=== PATIENT | female | born 1960 | race Caucasian/White ===

== ENCOUNTER 2018-09-22 16:18 | Emergency (ER) | payer MEDICARE, MEDICAID, SELFPAY ==
[2018-09-22] VITALS (40 sets, daily range): BP systolic 131–200; BP diastolic 57–120; PULSE 64–94; RESP 4–21; TEMP 36.9; O2SAT 90–100
--- NOTE | 2018-09-22 16:28 | ED.GENADUL_ITS ---
Discharge Plan Disposition Patient Disposition: HOME Condition: Improving Discharge Details Chief Complaint: Dizzy/Sync Clinical Impression: Vertigo, Fall, Episode of syncope, Cervical strain, Closed head injury with brief loss of consciousness, Left rib fracture Primary Care Provider: Belkys Berg ED Provider: Nehal Martinez Home Meds and New Rx's Prescriptions: New meclizine 12.5 mg tablet 12.5 mg PO TID PRN (Reason: dizziness) Qty: 10 RF: 0 prochlorperazine maleate [Compazine] 10 mg tablet 10 mg PO Q6H PRN (Reason: nausea and vomiting) Qty: 7 RF: 0 methocarbamol 750 mg tablet 750 mg PO QID PRN (Reason: muscle spasm) Qty: 10 RF: 0 Continued ascorbic acid (vitamin C) [Vitamin C] 250 MG tablet 250 mg PO BID RF: 0 alprazolam 1 MG tablet extended release 24 hr 0.5 mg PO BID RF: 0 psyllium husk (with sugar) [Metamucil (with sugar)] 822 GM powder 1 - 2 tsp PO DAILY Qty: 1 RF: 1 levothyroxine 50 MCG tablet 50 mcg PO DAILY Qty: 90 RF: 12 ergocalciferol (vitamin D2) [Vitamin D2] 50,000 UNIT capsule 1 tab-cap PO weekly Qty: 12 RF: 12 hydrochlorothiazide 25 mg tablet 25 mg PO DAILY Qty: 90 RF: 4 cholecalciferol (vitamin D3) [Vitamin D3] 2,000 unit capsule 2,000 unit PO DAILY Qty: 90 RF: 4 Prilosec OTC 20 mg tablet,delayed release (DR/EC) 20 mg PO BID Qty: 180 RF: 3 docusate sodium [Colace] 100 MG capsule 200 mg PO BID RF: 0 quetiapine [Seroquel XR] 50 MG tablet extended release 24 hr 100 mg PO HS RF: 0 Discharge Instructions Instructions: Cervical Strain (ED), Rib Fracture (ED), Vertigo (ED), Syncope (ED), Head Injury (ED) Additional Instructions: Take the muscle relaxers as needed and directed for your neck pain. Alternate Tylenol and Motrin as needed and directed for pain. Take the Compazine as needed and directed for any further nausea or vomiting. Take the meclizine as needed and directed for any dizziness. Call your primary tomorrow morning to schedule a follow-up appointment for reevaluation and for referral for a ZIO Patch for Holter monitor for evaluation of your heart rhythm. Return immediately to the emergency department if you develop any worsening or new concerning symptoms. Discharge Data Discharge Physician: Nehal Martinez Medical Decision Making 58-year-old female with a history of hypertension, hypothyroidism, fibromyalgia, sleep apnea who presents with spinning sensation and nausea for the past 6 days status post head injury with syncopal episode. EKG on arrival notes a rate of 87, sinus with no acute ST elevation or depression. Patient placed in c-collar. She has lower midline C-spine and left paraspinal cervical tenderness. Moving all extremities. No focal deficits. No head trauma. Differential diagnosis includes BPPV, dehydration, viral illness, acute CVA, arrhythmia, electrolyte abnormality, cervical strain, C-spine fracture. Will place an IV, bolus IV fluids, meclizine, Compazine, Benadryl, Valium. Will give Toradol if CT head negative. Will obtain screening labs, urinalysis, CT head, cervical spinal chest x-ray. 1929 --CT head and cervical spine negative. Chest x-ray notes a possible left rib fracture. On reassessment of chest, patient has left chest wall tenderness. Lungs clear. Patient offered left rib x-ray but declines. She states she may have hit her left rib in her fall 1 week ago. Labs reviewed and note normal white blood cell count, potassium 3.3. Anion gap 15. Magnesium 1.6. Troponin negative. Urinalysis notes 3-5 WBCs and urine culture sent. Suspect anion gap due to dehydration. 1999 --patient feels much better and feels good to go home. Will ambulate and reassess. 2029 --patient was able to ambulate a few times in the commode and denies any dizziness. States her neck pain is much improved. She denies any chest pain. No respiratory available at this time. As this is not emergent, will refer patient to her primary care doctor for ZIO Patch or Holter monitor for further evaluation. Will send with methocarbamol, meclizine and Compazine. She is instructed to drink plenty of fluids, supplement potassium in her diet, get plenty of rest, and return with any worsening symptoms. Medical Records Medical records reviewed: Yes I reviewed the patient's medical records. Imaging Data Radiologic Study: Radiologist's impression: CT Head Without Contrast EXAM DATE/TIME: 09/22/2018 5:03 PM CLINICAL HISTORY: 58 years old, female; Headache not specified; Neck pain; Patient HX: PT S/P fall, head injury TECHNIQUE: Imaging protocol: Axial computed tomography images of the head without contrast. Coronal and sagittal reformatted images were created and reviewed. Radiation optimization: All CT scans at this facility use at least one of these dose optimization techniques: automated exposure control; mA and/or kV adjustment per patient size (includes targeted exams where dose is matched to clinical indication); or iterative reconstruction. COMPARISON: No relevant prior studies available. FINDINGS: Brain: No evidence for acute transcortical infarct. No mass effect or midline shift. No extra-axial collection. No acute intracranial hemorrhage. Basal cisterns are patent. Ventricles: Normal. No ventriculomegaly. Bones/joints: Unremarkable. No acute fracture. Sinuses: Visualized sinuses are unremarkable. No fluid levels. Mastoid air cells: Visualized mastoid air cells are well aerated. No mastoid effusion. Soft tissues: Unremarkable. IMPRESSION: No evidence for acute transcortical infarct, acute intracranial hemorrhage, or mass effect. CT Cervical Spine Without Contrast EXAM DATE/TIME: 09/22/2018 5:03 PM CLINICAL HISTORY: 58 years old, female; Headache not specified; Neck pain; Patient HX: PT S/P fall, head injury TECHNIQUE: Imaging protocol: Axial computed tomography images of the cervical spine without contrast. Coronal and sagittal reformatted images were created and reviewed. Radiation optimization: All CT scans at this facility use at least one of these dose optimization techniques: automated exposure control; mA and/or kV adjustment per patient size (includes targeted exams where dose is matched to clinical indication); or iterative reconstruction. COMPARISON: No relevant prior studies available. FINDINGS: Vertebrae: No acute fracture or traumatic subluxation. No spondylolisthesis. The atlantooccipital and atlantoaxial articulations are intact. Facet joint alignments are maintained. Discs/Spinal canal/Neural foramina: Age-related degenerative disc disease. Multilevel degenerative changes of the cervical spine. Other bones/joints: Occipital condyles are intact. Prevertebral Space: No prevertebral soft tissue swelling. Soft tissues: Unremarkable. Lungs: Lung apices are normal. IMPRESSION: No acute fracture or traumatic subluxation. XR Chest, 2 Views EXAM DATE/TIME: 09/22/2018 6:43 PM CLINICAL HISTORY: 58 years old, female; Other: L chest pain, R/O acute disease TECHNIQUE: Imaging protocol: XR of the chest, 2 views. COMPARISON: CR CHEST 2 VIEWS PA,LAT 05/13/2016 7:03 PM FINDINGS: Lungs: Clear lungs. Pleural space: No pneumothorax. No sizable pleural effusion. Heart/Mediastinum: No cardiomegaly. Bones/joints: Questionable fracture of the left 8th lateral rib. IMPRESSION: 1. Questionable fracture of the left 8th lateral rib. Consider dedicated rib series radiographs for further evaluation. Lab Data Lab results reviewed: Yes I reviewed the patient's lab results. 09/22/18 18:32 Urine - Reflex from Ua Urine Culture - Pending Laboratory Tests Range/Units 09/22/18 09/22/18 09/22/18 16:36 16:36 18:32 WBC (4.4-10.8) k/cumm 10.13 RBC (4.00-5.20) m/cumm 4.87 Hgb (12.0-15.5) g/dL 15.2 Hct (36.0-46.0) % 43.4 MCV (80-95) fL 89.1 MCH (27.0-33.0) pg 31.2 MCHC (32.0-36.0) g/dL 35.0 RDW (11.7-14.6) % 13.0 Plt Count (130-400) x1000/uL 303 MPV (8.0-11.0) fL 10.7 Immature Gran % 0.4 Neutrophils % 60.9 Lymphocytes % 30.8 Monocytes % 5.3 Eosinophils % 2.3 Basophils % 0.3 Absolute Neutrophils (1.2-6.7) k/cumm 6.17 Absolute Lymphocytes (1.2-3.4) k/cumm 3.12 Absolute Monocytes (0.11-0.7) k/cumm 0.54 Absolute Eosinophils (0.0-0.7) k/cumm 0.23 Absolute Basophils (0.0-0.2) k/cumm 0.03 Sodium (136-145) mmol/L 143 Potassium (3.5-5.1) mmol/L 3.3 L Chloride (98-107) mmol/L 105 Carbon Dioxide (21.0-32.0) mmol/L 22.1 Anion Gap (3-11) mmol/L 15.9 H BUN (7-18) mg/dL 7 Creatinine (0.55-1.02) mg/dL 0.91 Estimated GFR/1.73 m2 (mL/min/1.73m2) >= 60.00 Glucose (70-100) mg/dL 99 Calcium (8.5-10.1) mg/dL 8.2 L Magnesium (1.8-2.4) mg/dL 1.6 L Total Bilirubin (0.2-1.0) mg/dL 0.5 AST (15-37) U/L 35 ALT (12-78) U/L 65 Alkaline Phosphatase (46-116) U/L 92 Troponin I (0.00-0.06) ng/mL < 0.05 Total Protein (6.4-8.2) g/dL 7.9 Albumin (3.4-5.0) g/dL 3.7 Urine Color (Yellow) Yellow Urine Clarity (Clear) Sl cloudy Urine pH (5-8) 6.5 Ur Specific [place] (1.005-1.025) <= 1.005 Urine Protein (Negative) mg/dL Negative Urine Ketones (Negative) mg/dL Negative Urine Blood (Negative) Trace-intact H Urine Nitrite (Negative) Negative Urine Bilirubin (Negative) Negative Urine Urobilinogen (Up TO 0.2) EU/dL 0.2 Ur Leukocyte Esterase (Negative) Small H Urine RBC (0-2) 0-2 Urine WBC (0-5) HPF 3-5 Ur Epithelial Cells (Negative) HPF Few Urine Crystals (Negative) HPF Negative Urine Bacteria (Negative) HPF Many Urine Casts (Negative) LPF Negative Urine Mucus (Negative) Negative Ur Culture Indicated? Yes Urine Glucose (Negative) mg/dL Negative ECG Data Attestation: I personally reviewed and interpreted this ECG (s) as follows: Interpretation: Rate of 87, sinus, T wave inversion in V2 and V3. No old EKG to compare. No acute ST elevation or depression. QTc 476. QRS 102. HPI General Mode of arrival: ambulatory . Date/Time Provider Initiated Documentation: 09/22/18 16:21 . Limitations to Documentation: no limitations . Information obtained by: patient . HPI Narrative: Patient is a 58-year-old female with a history of hypertension, fibromyalgia, hypothyroidism, obstructive sleep apnea who presents with dizziness, and nausea for the past 6 days. Patient states she stood up quickly one 1 week ago and became dizzy and spinning and states she passed out. She states she woke up sitting on the couch and had posterior headache and left-sided neck pain. She states she thinks she hit her head and also her left knee. She states her left knee pain is since resolved. She states since then she has had spinning sensation that is worse with laying flat and when turning from side to side. She states she also has left-sided neck pain that is worse to palpation and occasionally radiates down to her left shoulder. She states she had chest pain last week for 1 day but this is since resolved. She denies any fever, ear pain, cough, shortness of breath, abdominal pain, vomiting or diarrhea. Related Data Home Medications Medication Instructions Recorded Confirmed ascorbic acid (vitamin C) [Vitamin 250 mg PO BID 05/30/12 07/12/16 C] docusate sodium [Colace] 200 mg PO BID 10/01/12 07/12/16 quetiapine [Seroquel XR] 100 mg PO HS 10/01/12 07/12/16 alprazolam 0.5 mg PO BID 12/08/15 07/12/16 psyllium husk (with sugar) 1 - 2 tsp PO DAILY #1 bottle 04/18/17 [Metamucil (with sugar)] levothyroxine 50 mcg PO DAILY #90 tab-cap 08/24/17 ergocalciferol (vitamin D2) 1 tab-cap PO weekly #12 tab-cap 10/26/17 [Vitamin D2] hydrochlorothiazide 25 mg tablet 25 mg PO DAILY #90 tab 04/30/18 cholecalciferol (vitamin D3) 2,000 2,000 unit PO DAILY #90 tab 05/28/18 unit capsule omeprazole magnesium 20 mg 20 mg PO BID #180 tab-cap 06/04/18 tablet,delayed release meclizine 12.5 mg PO TID PRN #10 tab 09/22/18 methocarbamol 750 mg PO QID PRN #10 tab 09/22/18 prochlorperazine maleate 10 mg PO Q6H PRN #7 tab 09/22/18 [Compazine] Previous Rx's Medication Instructions Recorded psyllium husk (with sugar) 1 - 2 tsp PO DAILY #1 bottle 04/18/17 [Metamucil (with sugar)] levothyroxine 50 mcg PO DAILY #90 tab-cap 08/24/17 ergocalciferol (vitamin D2) 1 tab-cap PO weekly #12 tab-cap 10/26/17 [Vitamin D2] hydrochlorothiazide 25 mg tablet 25 mg PO DAILY #90 tab 04/30/18 cholecalciferol (vitamin D3) 2,000 2,000 unit PO DAILY #90 tab 05/28/18 unit capsule omeprazole magnesium 20 mg 20 mg PO BID #180 tab-cap 06/04/18 tablet,delayed release meclizine 12.5 mg PO TID PRN #10 tab 09/22/18 methocarbamol 750 mg PO QID PRN #10 tab 09/22/18 prochlorperazine maleate 10 mg PO Q6H PRN #7 tab 09/22/18 [Compazine] Allergies Allergy/AdvReac Type Severity Reaction Status Date / Time clindamycin Allergy Severe RASH Unverified 04/18/17 15:31 latex Allergy Intermediate RASH Unverified 04/18/17 15:31 levofloxacin [From Levaquin] Allergy Intermediate Hives Unverified 04/18/17 15: 31 Penicillins Allergy Unknown Skin Rash Unverified 04/18/17 15:31 amoxicillin [Amoxicillin] Allergy RASH Unverified 04/18/17 15:31 eszopiclone [From Lunesta] Allergy Hives Unverified 04/18/17 15:31 venlafaxine AdvReac Intermediate ELEVATED Unverified 04/18/17 15:31 B/P from Effexor acetaminophen AdvReac CAUSES Unverified 04/18/17 15:31 PAIN IN RT SIDE aspirin AdvReac it byrd Unverified 04/18/17 15:31 my stomach codeine [Codeine] AdvReac NAUSEA/VOMI Unverified 04/18/17 15:31 TING doxepin [Doxepin] AdvReac NAUSEA Unverified 04/18/17 15:31 topiramate AdvReac LIVER Unverified 04/18/17 15:31 PAINS & NAUSEA Review of Systems Review of Systems All systems reviewed & are unremarkable except as noted in HPI and below Constitutional Reports as per HPI, Denies chills and Denies fever(s) Eyes Denies blurry vision ENT Reports dizziness, Denies sore throat and Denies throat swelling Cardiovascular Denies chest pain and Denies dyspnea Respiratory Denies cough and Denies dyspnea Gastrointestinal Denies abdominal pain, Denies diarrhea, Reports nausea and Denies vomiting Genitourinary Denies hematuria and Denies dysuria Musculoskeletal Denies back pain and Denies numbness Integumentary/Breasts Denies lesions and Denies rash Neurologic Reports dizziness, Denies focal weakness and Denies numbness Allergic/Immunologic Denies throat swelling PFS Medical History Colon polyps Fibromyalgia Gastritis HTN (hypertension) Hypothyroidism Internal hemorrhoids RYLIE (obstructive sleep apnea) Smoker Surgical History Appendectomy BREAST MASS (~03/2012) Cholecystectomy (10/02/12) Colonoscopy - MAC (07/12/16) EGD - MAC (07/12/16) Fracture, Closed Treatment Ligation of fallopian tube Surgery Tonsillectomy (03/27/12) Family History Mother Sciatic pain Essential hypertension Depression Heart disease Degenerative disorder of bone Stroke Grandfather Heart disease Neoplasm Stroke Maternal Uncle Heart disease Sister Substance abuse Essential hypertension Depression Brother No problems noted. Grandfather No problems noted. Grandmother Depression Hyperlipidemia Stroke Grandmother No problems noted. Son Essential hypertension Depression Son Essential hypertension Depression Asthma Son Essential hypertension Depression Daughter Hyperlipidemia Neoplasm Daughter Essential hypertension Depression Hyperlipidemia Neoplasm Family History Neoplasm Social History Smoking/Tobacco Use Status: Former Tobacco Use Alcohol Intake: former Drug use: Never Do you feel safe at home: Yes Do you feel safe in your relationship?: Yes Exam Const General: cooperative and healthy appearing Orientation: alert and awake HENMT Head: normal to inspection Ears: hearing grossly normal bilaterally, external ears normal and TM's normal bilaterally General nose exam: external nose normal Face and sinus: normal facial exam Mouth: oral mucosae normal Teeth and gingiva: dentition normal Throat: posterior oropharynx normal Eyes General: appearance normal, both eyes and all related structures Eyelids: eyelids normal Pupils: PERRL EOM: EOM intact bilaterally Neck Neck: normal visual inspection Lymphatic: no lymphadenopathy noted Chest Chest: normal inspection of the chest Resp Effort & Inspection: normal respiratory effort and able to speak in complete sentences Auscultation: clear to auscultation bilaterally Cardio Rate: regular rate Rhythm: regular rhythm GI Inspection: normal to inspection Palpation: soft, not firm, no guarding, no hepatosplenomegaly, no masses and nontender Auscultation: normal bowel sounds Back/Spine/Pelvis Back: no CVA tenderness Skin General skin exam: no rashes or lesions noted Neuro General: alert and awake Cognition: normal cognition Speech: speech normal Gait: normal gait Motor: muscle tone normal throughout Sensory Exam: no sensory deficits noted Extrem General: normal to inspection, full ROM and normal capillary refill Psych Appearance: grossly normal Mental Status: mental status grossly normal Speech and Movement: speech and movement normal Affect: normal affect Thought Process: normal
--- NOTE | 2018-09-22 16:59 | DI.RAD_ITS ---
SYMPTOM/DIAGNOSIS: LT CHEST PAIN, R/O ACUTE DISEASE PA AND LATERAL CHEST: 09/22 The heart is not enlarged. The lungs are clear and well expanded. There is question of slight rib deformity on the left laterally, possibly the 8th rib which could represent acute or healed fracture. Please correlate clinically. No evidence of pneumothorax or pleural effusion. CONCLUSION: No evidence of acute intrathoracic process. Left rib fracture not excluded.
--- NOTE | 2018-09-22 16:59 | DI.CT_ITS ---
SYMPTOM/DIAGNOSIS: S/P FALL AND HEAD INJURY, R/O ACUTE PROCESS CERVICAL SPINE CT: 09/22 CT examination of the cervical spine was performed utilizing multislice acquisition and multiplanar reconstruction. Images obtained through the lung apices are unremarkable. Tracheolaryngeal structures appear intact. No cervical mass or adenopathy seen. No evidence of acute cervical fracture. Multi-level loss of disc height noted along with moderate hypertrophic spurring of the vertebral end plates and facet joints consistent with degenerative change. Mild cervical kyphosis noted. CONCLUSION: Degenerative changes. No evidence of acute fracture. CRANIAL CT: 09/[address] was performed. There is moderate generalized cerebral atrophy somewhat prominent for the patient's reported age. No evidence of acute intracranial hemorrhage, mass effect or midline shift. No calvarial fracture identified. Paranasal sinuses and mastoid air cells appear fairly well aerated as visualized. The orbital and temporal bone structures appear intact. CONCLUSION: No evidence of acute intracranial injury.
[2018-09-22 17:27] LABS: Abs Immature Grans 0.04 k/cumm (0.0-0.09); Absolute Basophil Count 0.03 k/cumm (0.0-0.2); Absolute Eosinophil Count 0.23 k/cumm (0.0-0.7); Absolute Lymphocyte Count 3.12 k/cumm (1.2-3.4); Absolute Monocyte Count 0.54 k/cumm (0.11-0.7); Absolute Neutrophil Count 6.17 k/cumm (1.2-6.7); Basophils % 0.3; Eosinophils % 2.3; HCT 43.4 % (36.0-46.0); HGB 15.2 g/dL (12.0-15.5); Immature Grans % 0.4; Lymphocytes % 30.8; Mean Corpuscular Hemoglobin 31.2 pg (27.0-33.0); Mean Corpuscular Volume 89.1 fL (80-95); Mean Platelet Volume 10.7 fL (8.0-11.0); Monocytes % 5.3; Neutrophils % 60.9; Platelet Count 303 x1000/uL (130-400); RBC 4.87 m/cumm (4.00-5.20); White Blood Cell Count 10.13 k/cumm (4.4-10.8)
[2018-09-22 17:54] LABS: ALT 65 U/L (12-78); AST 35 U/L (15-37); Albumin 3.7 g/dL (3.4-5.0); Alkaline Phosphatase 92 U/L (46-116); Anion Gap 15.9 mmol/L (3-11); BUN 7 mg/dL (7-18); Bilirubin, Total 0.5 mg/dL (0.2-1.0); CO2 22.1 mmol/L (21.0-32.0); CREATININE 0.91 mg/dL (0.55-1.02); Calcium 8.2 mg/dL (8.5-10.1); Chloride 105 mmol/L (98-107); Glucose 99 mg/dL (70-100); Magnesium 1.6 mg/dL (1.8-2.4); Potassium 3.3 mmol/L (3.5-5.1); Sodium 143 mmol/L (136-145); Total Protein 7.9 g/dL (6.4-8.2)
[2018-09-22] MEDS: diazePAM 5 MG TAB PO (17:54)
[2018-09-22] MEDS: Meclizine 25 MG TAB PO (17:55)
[2018-09-22] MEDS: Normal Saline 1,000 ML 1000 ML IV (17:56)
[2018-09-22 17:57] LABS: Troponin I < 0.05 ng/mL (0.00-0.06)
[2018-09-22] MEDS: diphenhydrAMINE 50 MG/ML VIAL 25 MG IVP (17:57)
[2018-09-22] MEDS: Normal Saline 50 ML (17:59)
[2018-09-22] MEDS: Prochlorperazine 10 MG/2 ML VIAL IVP (17:59)
[2018-09-22 18:39] LABS: Bilirubin Negative (Negative); Blood Trace-intact (Negative); Clarity Sl Cloudy (Clear); Glucose Negative (Negative); Ketones Negative (Negative); Leukocyte Esterase Small (Negative); Nitrite Negative (Negative); Specific Gravity <= 1.005 (1.005-1.025); Urobilinogen 0.2 EU/dL (Up TO 0.2); pH 6.5 (5-8)
[2018-09-22 18:50] LABS: Bacteria Many HPF (Negative); C & S Indicated? Yes; Casts Negative LPF (Negative); Crystals Negative HPF (Negative); Epithelial Cells Few HPF (Negative); Mucus Negative (Negative); RBC 0-2 (0-2)
--- NOTE | 2018-09-22 19:10 | DI.VRAD_ITS ---
EXAM: XR Chest, 2 Views EXAM DATE/TIME: 09/22/2018 6:43 PM CLINICAL HISTORY: 58 years old, female; Other: L chest pain, R/O acute disease TECHNIQUE: Imaging protocol: XR of the chest, 2 views. COMPARISON: CR CHEST 2 VIEWS PA,LAT 05/13/2016 7:03 PM FINDINGS: Lungs: Clear lungs. Pleural space: No pneumothorax. No sizable pleural effusion. Heart/Mediastinum: No cardiomegaly. Bones/joints: Questionable fracture of the left 8th lateral rib. IMPRESSION: 1. Questionable fracture of the left 8th lateral rib. Consider dedicated rib series radiographs for further evaluation. 2. Clear lungs. Dictated and Authenticated by: Tramaine Hameed MD. Ordering:MANA Calvert MD
--- NOTE | 2018-09-22 19:27 | DI.VRAD_ITS ---
EXAM: CT Head Without Contrast EXAM DATE/TIME: 09/22/2018 5:03 PM CLINICAL HISTORY: 58 years old, female; Headache not specified; Neck pain; Patient HX: PT S/P fall, head injury TECHNIQUE: Imaging protocol: Axial computed tomography images of the head without contrast. Coronal and sagittal reformatted images were created and reviewed. Radiation optimization: All CT scans at this facility use at least one of these dose optimization techniques: automated exposure control; mA and/or kV adjustment per patient size (includes targeted exams where dose is matched to clinical indication); or iterative reconstruction. COMPARISON: No relevant prior studies available. FINDINGS: Brain: No evidence for acute transcortical infarct. No mass effect or midline shift. No extra-axial collection. No acute intracranial hemorrhage. Basal cisterns are patent. Ventricles: Normal. No ventriculomegaly. Bones/joints: Unremarkable. No acute fracture. Sinuses: Visualized sinuses are unremarkable. No fluid levels. Mastoid air cells: Visualized mastoid air cells are well aerated. No mastoid effusion. Soft tissues: Unremarkable. IMPRESSION: No evidence for acute transcortical infarct, acute intracranial hemorrhage, or mass effect. EXAM: CT Cervical Spine Without Contrast EXAM DATE/TIME: 09/22/2018 5:03 PM CLINICAL HISTORY: 58 years old, female; Headache not specified; Neck pain; Patient HX: PT S/P fall, head injury TECHNIQUE: Imaging protocol: Axial computed tomography images of the cervical spine without contrast. Coronal and sagittal reformatted images were created and reviewed. Radiation optimization: All CT scans at this facility use at least one of these dose optimization techniques: automated exposure control; mA and/or kV adjustment per patient size (includes targeted exams where dose is matched to clinical indication); or iterative reconstruction. COMPARISON: No relevant prior studies available. FINDINGS: Vertebrae: No acute fracture or traumatic subluxation. No spondylolisthesis. The atlantooccipital and atlantoaxial articulations are intact. Facet joint alignments are maintained. Discs/Spinal canal/Neural foramina: Age-related degenerative disc disease. Multilevel degenerative changes of the cervical spine. Other bones/joints: Occipital condyles are intact. Prevertebral Space: No prevertebral soft tissue swelling. Soft tissues: Unremarkable. Lungs: Lung apices are normal. IMPRESSION: No acute fracture or traumatic subluxation. Dictated and Authenticated by: Tramaine Hameed MD. Ordering:MANA Calvert MD
[2018-09-22] MEDS: Ketorolac 30 MG/ML VIAL IVP (19:49)
[2018-09-22] MEDS: MAGNESIUM SULFATE 1 GM/100 ML BAG IVPB (19:49)
--- NOTE | 2018-09-25 10:42 | W.ED.FU ---
Follow Up Plan: patient's UA grew e.coli. I called and spoke with her and she feels well and has absolutely no urinary symptoms so will hold on abx, she has f/u on Sunday with pcp and will return here if worsening
== END 2018-09-22 21:00 | disposition home or self-care (01) ==
PROVIDERS: Emergency Provider Physician Assistant
DX: R55 Syncope and collapse (principal); S22.32XA Fracture of one rib, left side, initial encounter for closed fracture; S09.90XA Unspecified injury of head, initial encounter; S16.1XXA Strain of muscle, fascia and tendon at neck level, initial encounter; W01.0XXA Fall on same level from slipping, tripping and stumbling without subsequent striking against object, initial encounter; I10 Essential (primary) hypertension
CPT/HCPCS: 36415; 80053; 87077; 93005; 96361; 96365; 96375; 99285; 70450; 71046; 72125; 81003; 81015; 83735; 84484; 85025; 87086; 87186; 93010; J0780; J1200; J3475; L0172

== ENCOUNTER 2018-10-07 00:36 | Outpatient (CLI) | payer MEDICARE, MEDICAID, SELFPAY | END 2018-10-07 00:56 | DX: R69 Illness, unspecified (principal) ==

== ENCOUNTER 2018-10-10 14:52 | Outpatient (CLI) | payer MEDICARE, MEDICAID, SELFPAY ==
[2018-10-10 16:04] LABS: Anion Gap 12.1 mmol/L (3-11); BUN 18 mg/dL (7-18); CO2 25.9 mmol/L (21.0-32.0); CREATININE 0.98 mg/dL (0.55-1.02); Calcium 9.6 mg/dL (8.5-10.1); Chloride 100 mmol/L (98-107); Estimated GFR 58.29 (mL/min/1.73m2); Glucose 101 mg/dL (70-100); Potassium 3.7 mmol/L (3.5-5.1); Sodium 138 mmol/L (136-145)
--- NOTE | 2018-10-15 13:51 | HOLTER_ITS ---
DATE OF DICTATION: October 15, 2018 STUDY INDICATION: Syncope. REQUESTING PROVIDER: Not available. FINDINGS: The patient was monitored for 2 days. Baseline sinus rhythm with normal conduction. Intermittent left bundle branch block, not rate-related. Average heart rate 75 bpm, range 62 to 190 bpm. Rare ectopy. No pauses greater than 3 seconds. No high degree heart block. Seven patient events. 4 events correlated with intermittent left bundle branch block. All other events did not correlate with arrhythmias. FINAL INTERPRETATION: Intermittent left bundle branch block, at times symptomatic. RECOMMENDATION: Ischemic evaluation with stress test.
== END 2018-10-10 15:12 ==
DX: R55 Syncope and collapse (principal); I45.4 Nonspecific intraventricular block
CPT/HCPCS: 36415; 80048; 93225

== ENCOUNTER 2018-10-15 09:07 | Outpatient (CLI) | payer MEDICARE, MEDICAID, SELFPAY | END 2018-10-15 09:27 | DX: R55 Syncope and collapse (principal); I45.4 Nonspecific intraventricular block | CPT/HCPCS: 93227; 93226 ==

== ENCOUNTER 2018-10-22 00:23 | Outpatient (CLI) | payer MEDICARE, MEDICAID, SELFPAY ==
--- NOTE | 2018-10-22 15:11 | DI.MAMMO_ITS ---
SYMPTOMS/DIAGNOSIS: SCREENING, Z12.31 BILATERAL SCREENING MAMMOGRAMS: Mammograms were interpreted according to the usual protocol including computer analysis with CAD system, tomosynthesis and C view imaging. Comparison is made with exams from 2014 through 2018. The breasts are composed of fatty density tissue, breast density category A. No suspicious masses or suspicious microcalcifications are seen. There has been interval decrease in size of bilateral areas of nodularity when compared with previous exams. A coarse calcification is again noted in the right breast. IMPRESSION: Category 2, negative mammogram with benign findings. Yearly screening mammography is recommended. [facility] ASSESSMENT OF FINDINGS: Negative with benign findings. Category 2. Patient will receive a letter notifying them of these results. BI-RAD category A. The breasts are almost entirely fatty.
== END 2018-10-22 00:43 ==
DX: Z12.31 Encounter for screening mammogram for malignant neoplasm of breast (principal)
CPT/HCPCS: 77063; 77067

== ENCOUNTER 2018-10-28 00:03 | Outpatient (CLI) | payer MEDICARE, MEDICAID, SELFPAY ==
--- NOTE | 2018-10-28 07:16 | MERGEMPI_ITS ---
*[facility]* *[facility]* [address] [place] [address] Myocardial Perfusion Imaging - SPECT Camacho protocol Date of study: 10/28/2018 *PATIENT PRESENTATION* Height: 163.2cm (64.3in) Blood Pressure: Weight: 84.1kg (185lb) BSA: 1.98m^2 Referring physician: Grady Johnson MD Ordering physician: Belkys Berg Impressions: Normal perfusion by Tc99m Sestamibi Imaging. Summary: 1. Myocardial perfusion imaging: No myocardial perfusion defects noted. 2. The calculated left ventricular ejection fraction after stress: 52%. LV global systolic function is normal. No left ventricular regional motion abnormality. 3. Pt appears to develop a rate related LBBB with an atrial tachycardia that was intermittently noted with exercise. Rec zio monitor to blaise gonzalez. Indication: R94.31, Z87.898, I44.7. History: REASON FOR TESTING: PATIENT TESTING TODAY FOR FURTHER RISK STRATIFICTION. PATIENT REPORTS AN UNWITNESSED FALL WITH LOC ON SEPTEMBER 19, 2018, LOC TIME IS UNKNOWN. FOLLOWING THIS EVENT SHE REPORTS 3 DAYS OF LEFT SIDED CHEST DISCOMFORT, SOB, DIZZYNESS, AND NAUSEA THAT WENT AWAY ON ITS OWN. SHE STATES A SIMILAR LESS INTENSE EPISODE HAPPENED APPROXIMENTLY 1 YEAR AGO. PATIENT DENIES CHEST PAIN AND SOB UPON ARRIVAL TO TESTING TODAY. SIGNIFICANT PAST MEDICAL HISTORY: RYLIE. SMOKING STATUS: QUIT 2017. SMOKED FOR 27 YEARS 1.5 TO 2 PPD EXERCISE ROUTINE: DAILY ADL'S. Risk factors: Family history of coronary artery disease. Hypertension. Obesity. Dyslipidemia. Cholesterol: 207mg/dl. HDL: 52mg/dl. LDL: 130mg/dl. Triglycerides: 131mg/dl. ALLERGIES: CLINDAMYCIN, LATEX, LEVAQUIN, PENICILLIN, AMOXICILLIN, LUNESTA, VENLAFAXINE, ACETAMINOPHEN, ASPIRIN, CODEINE, DOXEPIN, TOPIRAMATE. MEDICATIONS: COLACE 1 TO 2 TABS PRN, SEROQUEL XR 200 MG HS, VITAMIN D2 WEEKLY (DOSE UNKNOWN), HYDROCHLOROTHIAZIDE 25 MG DAILY, VITAMIN D3 DAILY (DOSE UNKNOWN), OMEPRAZOLE 20 MG BID, MECLIZINE 12.5 MG PRN, COMPAZINE 10 MG PRN, LEVOTHYROXINE 50 MCG DAILY, CYCLOBENZAPRINE 5 MG PRN. Imaging Technique: Protocol: Camacho protocol. Acquisition: Gated SPECT; 1 day - rest/stress. The patient was imaged in the supine position. Attenuation correction used. Isotope administration: - Rest. Tc[99m]-sestamibi. Dose: 11mCi. Injection time: 11:30 AM. Injection to stress time: 00:45. - Stress. Tc[99m]-sestamibi. Dose: 33.4mCi. Injection time: 01:45 PM. 1-2 min before end of exercise Baseline ECG: SINUS RHYTHM. HR 69. Stress protocol: + +--+ + + !Stage !HR!BP (mmHg) !Comments ! + +--+ + + !Baseline supine!69!134/80 (98) ! ! + +--+ + + !1 min !85!150/90 (110)!Inject Regadenoson.! + +--+ + + !3 min !88!130/86 (101)! ! + +--+ + + !6 min !83!140/80 (100)! ! + +--+ + + !9 min !78!140/84 (103)! ! + +--+ + + * Stress results: LEXISCAN STRESS TEST ENDED IN 16 MINUTES 4 SECONDS. NORMAL HEART RATE AND BLOOD PRESSURE RESPONSE TO LEXISCAN INJECTION. RARE PVC NOTED PRE LEXISCAN INJECTION. INTERMITTENT LEFT BBB, LIKELY RATE RELATED WITH ASSOCIATED ST WAVE CHANGES. EPIGASTRIC CHEST HEAVYNESS (3/10) AT 9 MINUTES POST LEXISCAN INJECTION, SUBSIDED BY 10 MINUTES 55 SECONDS POST LEXISCAN INJECTION. LEFT SHOULDER PAIN RADIATING DOWN LEFT ARM AT 13 MINUTES 31 SECONDS POST LEXISCAN INJECTION, SUBSIDED BY 14 MINUTES 26 SECONDS POST LEXISCAN INJECTION. The rate-pressure product for the peak heart rate and blood pressure was 13270jp Hg/min. Myocardial perfusion: Imaging information: gated. Left ventricular size is normal. Right ventricular size is normal. No myocardial perfusion defects noted. Ventricular Function (Wall Motion): The calculated left ventricular ejection fraction after stress: 52%. LV global systolic function is normal. No left ventricular regional motion abnormality. Right ventricular function is normal. Study data: Grady Johnson MD supervised and was readily available during the procedure. This study was interpreted by [facility]. Study status: Routine. Consent: The risks, benefits, and alternatives to the procedure were explained to the patient and informed consent was obtained. Procedure: Initial setup. A baseline ECG was recorded. Surface ECG leads and manual cuff blood pressure measurements were monitored. Heart sounds: Normal. Lung sounds: Normal. Treadmill exercise testing was performed using the Camacho protocol. Study completion: All catheters inserted during the procedure were removed. The patient tolerated the procedure well and was discharged from the lab. Discharge: The patient left the laboratory in stable condition. Birthdate: Patient birthdate: 1960. Sex: Gender: female. Study date: Study date: 10/28/2018. Study time: 00:01 AM. Electronically signed by Grady Johnson MD 10/28/2018 18:40
[2018-10-28] MEDS: Regadenoson 0.4 MG/5 ML SYR IVP (15:27)
== END 2018-10-28 00:23 ==
DX: R55 Syncope and collapse (principal); R07.89 Other chest pain; R42 Dizziness and giddiness; Z87.891 Personal history of nicotine dependence
CPT/HCPCS: 78452; 93016; 93018; 93017; J2785

== ENCOUNTER 2018-11-11 02:01 | Outpatient (CLI) | payer MEDICARE, MEDICAID, SELFPAY ==
--- NOTE | 2018-12-02 11:15 | ZIOP_ITS ---
DATE OF DICTATION: December 02, 2018 STUDY INDICATION: Syncope. REQUESTING PROVIDER: LAYNE Adams FINDINGS: The patient was monitored for 13 days and 22 hours. The predominant underlying rhythm was sinus rhythm. Average heart rate in sinus rhythm 80 bpm, range 58 to 155 bpm. There was intermittent bundle branch block. There was rare ectopy. There was one 11-beat supraventricular run, average heart rate 144 bpm. There were no pauses greater than 3 seconds. There was no high-degree heart block. There were 12 patient events. Nine events correlated with PVC's. One event correlated with bundle branch block. All other events did not correlated with arrhythmias. FINAL INTERPRETATION: Rare ventricular arrhythmias, at times symptomatic. Rare atrial arrhythmias, asymptomatic.
== END 2018-11-11 02:21 ==
DX: R55 Syncope and collapse (principal); I49.3 Ventricular premature depolarization; I49.1 Atrial premature depolarization
CPT/HCPCS: 0296T

== ENCOUNTER 2018-12-02 08:35 | Outpatient (CLI) | payer MEDICARE, MEDICAID, SELFPAY | END 2018-12-02 08:55 | PROVIDERS: Visit Provider Student in an Organized Health Care Education/Training Program | DX: R55 Syncope and collapse (principal); I49.3 Ventricular premature depolarization; I49.1 Atrial premature depolarization | CPT/HCPCS: 0298T ==

== ENCOUNTER 2019-12-19 04:31 | Outpatient (CLI) | payer MEDICARE, MEDICAID, SELFPAY ==
[2019-12-19 17:12] LABS: ALT 99 U/L (14-59); AST 76 U/L (15-37); Albumin 3.9 g/dL (3.4-5.0); Alkaline Phosphatase 89 U/L (46-116); BUN 13 mg/dL (7-18); Bilirubin, Total 0.4 mg/dL (0.2-1.0); Calcium 9.5 mg/dL (8.5-10.1); Chloride 101 mmol/L (98-107); Glucose 101 mg/dL (74-106); Potassium 3.7 mmol/L (3.5-5.1); Sodium 135 mmol/L (136-145); TSH 2.53 uIU/mL (0.36-3.74); Total Protein 8.2 g/dL (6.4-8.2); Vitamin B12 607 pg/mL (193-986)
== END 2019-12-19 04:51 ==
PROVIDERS: Visit Provider Nurse Practitioner Psychiatric/Mental Health
DX: F33.2 Major depressive disorder, recurrent severe without psychotic features (principal); Z79.899 Other long term (current) drug therapy
CPT/HCPCS: 36415; 80053; 80061; 82306; 82607; 82746; 84443

== ENCOUNTER 2021-06-30 02:15 | Outpatient (CLI) | payer MEDICARE, MEDICAID, SELFPAY ==
[2021-06-30 09:27] LABS: HCT 42.8 % (36.0-46.0); HGB 13.9 g/dL (11.2-15.7); MCH 29.9 pg (27.0-33.0); MCHC 32.5 % (32.0-36.0); MPV 9.8 fL (8.0-11.0); Platelet Count 332 10^3/uL (130-400); RBC 4.65 10^6/uL (3.93-5.22); RDW 13.2 % (11.7-14.6); RDW-SD 44.7 fL; WBC 9.65 10^3/uL (4.4-10.8)
[2021-06-30 10:10] LABS: Hemoglobin A1C 6.2 % (<5.7)
[2021-06-30 10:53] LABS: ALT 54 U/L (14-59); AST 37 U/L (15-37); Albumin 3.8 g/dL (3.4-5.0); Alkaline Phosphatase 106 U/L (46-116); Anion Gap 11.4 mmol/L (3-11); BUN 17 mg/dL (7-18); Bilirubin, Total 0.2 mg/dL (0.2-1.0); CO2 27.6 mmol/L (21.0-32.0); Calcium 9.1 mg/dL (8.5-10.1); Calculated LDL 121 mg/dL (<100); Chloride 104 mmol/L (98-107); Cholesterol 221 mg/dL (<200); Estimated GFR 56.37 (mL/min/1.73m2); Glucose 132 mg/dL (74-106); HDL Cholesterol 41 mg/dL (40-60); Potassium 4.1 mmol/L (3.5-5.1); Sodium 143 mmol/L (136-145); TSH 4.46 uIU/mL (0.36-3.74); Triglyceride 295 mg/dL (<150)
[2021-06-30 10:54] LABS: Vitamin D 25 Total 52.4 ng/mL (30-100)
[2021-06-30 11:11] LABS: FREE T4 0.96 ng/dL (0.76-1.46)
[2021-07-01 09:52] LABS: Hepatitis B Surface Ag Negative (Negative)
[2021-07-01 10:29] LABS: Hepatitis C Ab w Rflx HCV PCR Negative (Negative)
[2021-07-01 12:49] LABS: HIV-1/2 Ag & Ab Screen Negative (Negative)
== END 2021-06-30 02:16 | disposition home or self-care (01) ==
LOC: LBO 02:15
PROVIDERS: Visit Provider Family Medicine
DX: E03.9 Hypothyroidism, unspecified (principal); E55.9 Vitamin D deficiency, unspecified; E78.5 Hyperlipidemia, unspecified; R73.9 Hyperglycemia, unspecified; Z11.59 Encounter for screening for other viral diseases; Z13.6 Encounter for screening for cardiovascular disorders; Z11.4 Encounter for screening for human immunodeficiency virus [HIV]
CPT/HCPCS: 36415; 80053; 80061; 82306; 85027; 86803; 87340; 87389; 83036; 84439; 84443

== ENCOUNTER → 2021-07-13 02:07 | Outpatient (CLI) | payer MEDICARE, MEDICAID, SELFPAY ==
--- NOTE | 2021-07-13 08:00 | DI.MAMMO_ITS ---
Exam(s) MAMMO SCREENING EXAM: MAMMO SCREENING CLINICAL HISTORY: screening,Z12.39 TECHNIQUE: Mammograms were interpreted according to the usual protocol including computer analysis w Save22 CAD system, tomosynthesis and C-view imaging. COMPARISON: 2011 through 2018 FINDINGS: The breasts are composed of mainly fatty density , Breast Density category A. No suspicious masses or suspicious microcalcifications are seen. Decrease in size of previously note d benign calcification right breast. No skin thickening or abnormal axillary lymph nodes are seen. There has been no significant change from prior exams. IMPRESSION: BI-RADS Category 1, Negative mammogram Yearly screening mammography is recommended. Breast Density - Category A, fatty density. A negative radiographic report should not delay biopsy if a dominant or clinically suspicious mass is present. Up to ten percent of cancers are not identified on mammography. A negative report may reinforce clinical impression. Adenosis and dense breasts may obscure an underlying neoplasm. False positive reports average 6 to 10%. Patient will receive a letter notifying them of these results.
== END ==
PROVIDERS: Visit Provider Family Medicine
DX: Z12.31 Encounter for screening mammogram for malignant neoplasm of breast (principal)
CPT/HCPCS: 77063; 77067

== ENCOUNTER 2022-07-26 00:53 | Outpatient (CLI) | payer MEDICARE, MEDICAID, SELFPAY ==
--- NOTE | 2022-07-26 08:30 | DI.RAD_ITS ---
Exam(s) XR LUMBAR SPINE COMPLETE EXAM: XR LUMBAR SPINE COMPLETE CLINICAL HISTORY: increased LOW BACK PAIN, M54.5. TECHNIQUE: 2D digital imaging was performed. Five views. COMPARISON: No exams were available for comparison FINDINGS: BONES: No fracture or destructive lesion. Vertebral body heights are maintained. Small endplate oste ophytes at L2-3 and L3-4. Mild facet hypertrophy identified. DISKS: Minimal narrowing of the L2-3 and L5-3 4 disc spaces. Remaining intervertebral disc spaces ar e maintained. ALIGNMENT: Lumbar spinal alignment is within normal limits. SOFT TISSUE: Surgical clips right upper quadrant. Bowel gas pattern unremarkable. Calcification in the aorta which appears normal in diameter. IMPRESSION: Mild degenerative disc changes at L2-3 and L3-4. DATA REPOSITORY: RADIATION DOSE DELIVERED:
== END 2022-07-26 01:13 ==
PROVIDERS: PCP Nurse Practitioner Family; Visit Provider Nurse Practitioner Family
DX: M51.36 Other intervertebral disc degeneration, lumbar region (principal)
CPT/HCPCS: 36415; 80048; 72110; 83036; 84439; 84443; 84481

== ENCOUNTER 2022-07-26 02:16 | Outpatient (CLI) | payer MEDICARE, MEDICAID, SELFPAY ==
[2022-07-26 14:50] LABS: Hemoglobin A1C 6.4 % (<5.7)
[2022-07-26 15:40] LABS: Anion Gap 9.6 mmol/L (3-11); BUN 18 mg/dL (7-18); CO2 27.4 mmol/L (21.0-32.0); CREATININE 1.1 mg/dL (0.55-1.02); Calcium 9.3 mg/dL (8.5-10.1); Chloride 100 mmol/L (98-107); Estimated GFR 56.81 (mL/min/1.73m2); FREE T4 1.14 ng/dL (0.76-1.46); Glucose 101 mg/dL (74-106); Potassium 3.9 mmol/L (3.5-5.1); Sodium 137 mmol/L (136-145); TSH (W/Ref FT4) 1.11 uIU/mL (0.36-3.74)
[2022-07-26 21:40] LABS: T3,Free 2.5 pg/mL (2.8-5.3)
== END 2022-07-26 02:17 | disposition home or self-care (01) ==
PROVIDERS: PCP Nurse Practitioner Family; Visit Provider Nurse Practitioner Family
DX: E03.9 Hypothyroidism, unspecified (principal); R73.9 Hyperglycemia, unspecified
CPT/HCPCS: 36415; 80048; 83036; 84439; 84443; 84481

== ENCOUNTER 2022-08-08 13:05 | Outpatient (REF) | payer MEDICARE, MEDICAID, SELFPAY ==
--- NOTE | 2022-08-08 15:50 | PAPFT_PTH ---
PATIENT: Leeanna Patel LOC: [facility] U#:[id number] AGE/SX: 62/F ROOM: RE08/08/[address]: Abraham Garcia DNP : 1960 BED: DIS: 08/08/2022 SPEC #: [id number] RECD: 08/09/22 13:15 STATUS: VIK REJalen #: [id number] MANJEET: 08/08/22 15:[address]: Abraham Denson [facility] Cytology RECD BY: Nirali Hall Tissues: 1 - CX/ENDOCX FOR PAP SMEARS Procedures: PAP THIN PREP/UVM Screening HPV DNA PROBE Comments: [id number]
== END 2022-08-08 13:06 | disposition home or self-care (01) ==
LOC: LBN 13:05
PROVIDERS: PCP Nurse Practitioner Family; Visit Provider Nurse Practitioner Family
DX: Z11.51 Encounter for screening for human papillomavirus (HPV) (principal); Z01.419 Encounter for gynecological examination (general) (routine) without abnormal findings
CPT/HCPCS: 88142; 87624

== ENCOUNTER 2022-08-11 00:20 | Outpatient (CLI) | payer MEDICARE, MEDICAID, SELFPAY ==
--- NOTE | 2022-08-11 08:30 | DI.MAMMO_ITS ---
Exam(s) MAMMO SCREENING EXAM: MAMMO SCREENING CLINICAL HISTORY: screening,Z12.39. TECHNIQUE: Bilateral full field digital CC and MLO mammographic images were obtained with 3D tomosyn thesis and utilizing computer aided detection (CAD). COMPARISON: Prior mammograms were reviewed. FINDINGS: No new significant findings in left breast. In the lateral aspect of the right breast there is an asymmetric density more evident than on prior m ammograms, this located 13 cm in from the nipple on the CC view. Measures approximately 2 by 1.2 cm. Additional imaging recommended. Benign-appearing microcalcifications right breast again noted. There is no significant architectural distortion nor skin thickening-retraction. IMPRESSION: 1. No radiographic evidence of malignancy in the left breast. 2. In the lateral aspect of the right breast there is an asymmetric density more evident than on prio r mammograms. Spot compression CC view and ultrasound recommended BI-RADS Category 0 - Assessment Incomplete: Need additional imaging evaluation Breast Density - Category A - Almost entirely fatty Breast density Category C or D implies that the patient has dense breast tissue. Dense breast tissue can make it harder to find cancer on a mammogram. Dense breast tissue is also associated with an incr eased risk of breast cancer. This information about the result of the mammogram report was provided to the patient to raise their awareness. Use this report when you speak with the patient about their risks for breast cancer, which includes their family history. At that time, you may recommend additional screening tests (Ultrasoun d or MRI) as these tests may add significant information. A negative radiographic report should not delay biopsy if a dominant or clinically suspicious mass is present. Up to ten percent of cancers are not identified on mammography. A negative report may reinforce clinical impression. Adenosis and dense breasts may obscure an underlying neoplasm. False positive reports average 6 to 10%. Patient will receive a letter notifying them of these results.
== END 2022-08-11 00:40 ==
LOC: DI 00:20
PROVIDERS: PCP Nurse Practitioner Family; Visit Provider Nurse Practitioner Family
DX: Z12.31 Encounter for screening mammogram for malignant neoplasm of breast (principal)
CPT/HCPCS: 77063; 77067

== ENCOUNTER 2022-08-17 02:28 | Outpatient (CLI) | payer MEDICARE, MEDICAID, SELFPAY ==
--- NOTE | 2022-08-17 | DI.US_ITS ---
Exam(s) MG MAMMO SCREEN CALL BACK UNI US BREAST RT COMPLETE EXAM: MG MAMMO SCREEN CALL BACK UNI-RIGHT AND COMPLETE RIGHT BREAST ULTRASOUND CLINICAL HISTORY: F/U MAMMO, R92.8,ASYMMETRIC DENSITY. TECHNIQUE: Unilateral spot mammographic images obtained with 3D tomosynthesisand utilizing computer aided detection (CAD). . Complete breast Ultrasound was also performed, including all 4 quadrants, the retroareolar region, a nd the ipsilateral axilla. COMPARISON: Prior mammograms were reviewed. This additional imaging was performed due to findings described on the recent screening mammogram of 08/11/2022. FINDINGS: DIAGNOSTIC MAMMOGRAM: Additional mammographic views performed today does not dissipate the nodule but it does exhibit a not ch, possibly a benign intramammary lymph node. COMPLETE RIGHT BREAST ULTRASOUND: Ultrasound performed today reveals no evidence solid or significant cystic lesions in all 4 quadrants .. Scanning of the ipsilateral axilla reveals no significant adenopathy. IMPRESSION: 1. Benign-appearing asymmetric density in the lateral aspect of the right breast on mammogram. 2. Negative complete right breast ultrasound. Appropriate follow-up is repeat right breast imaging in 6 months to fluid repeat right breast mammog lynda and ultrasound, with earlier imaging if a self detected breast change is noted. . The patient was informed of these findings and recommendations prior to leaving the department today. BI-RADS Category 3 - 6 month - Probably Benign Finding: Recommend follow-up mammography in 6 months Breast Density - Category B - Scattered areas of fibroglandular density Breast density Category C or D implies that the patient has dense breast tissue. Dense breast tissue can make it harder to find cancer on a mammogram. Dense breast tissue is also associated with an incr eased risk of breast cancer. This information about the result of the mammogram report was provided to the patient to raise their awareness. Use this report when you speak with the patient about their risks for breast cancer, which includes their family history. At that time, you may recommend additional screening tests (Ultrasoun d or MRI) as these tests may add significant information. A negative radiographic report should not delay biopsy if a dominant or clinically suspicious mass is present. Up to ten percent of cancers are not identified on mammography. A negative report may reinforce clinical impression. Adenosis and dense breasts may obscure an underlying neoplasm. False positive reports average 6 to 10%. Patient will receive a letter notifying them of these results.
== END 2022-08-17 02:48 ==
LOC: DI 02:28
PROVIDERS: PCP Nurse Practitioner Family; Visit Provider Nurse Practitioner Family
DX: Z12.31 Encounter for screening mammogram for malignant neoplasm of breast (principal); R92.8 Other abnormal and inconclusive findings on diagnostic imaging of breast
CPT/HCPCS: 76642; 77063; 77067

== ENCOUNTER 2022-09-07 01:18 | Outpatient (CLI) | payer MEDICARE, MEDICAID, SELFPAY ==
[2022-09-07 13:56] LABS: Abs Immature Grans 0.07 10^3/uL (0.0-0.06); Absolute Basophil Count 0.07 10^3/uL (0.0-0.2); Absolute Lymphocyte Count 2.59 10^3/uL (1.2-3.4); Absolute Monocyte Count 0.53 10^3/uL (0.1-0.8); Absolute Neutrophil Count 7.72 10^3/uL (1.2-6.7); Basophils % 0.6; Eosinophils % 2.7; HCT 44.8 % (36.0-46.0); HGB 15.5 g/dL (11.2-15.7); Immature Grans % 0.6; MCH 31.3 pg (27.0-33.0); MCHC 34.6 % (32.0-36.0); MCV 90 fL (80-95); MPV 9.7 fL (8.0-11.0); Monocytes % 4.7; Neutrophils % 68.4; Platelet Count 317 10^3/uL (130-400); RBC 4.96 10^6/uL (3.93-5.22); RDW 13.1 % (11.7-14.6); RDW-SD 43.1 fL; WBC 11.28 10^3/uL (4.4-10.8)
[2022-09-07] MEDS: Normal Saline - Diluent 50 ML VIAL IJ (15:13)
[2022-09-07] MEDS: Omnipaque 350 MG/ML 500 ML BTL-Imaging package 100 ML IJ (15:14)
[2022-09-07] MEDS: Normal Saline Flush 10 ML SYR IJ (15:14)
--- NOTE | 2022-09-07 15:23 | DI.CT_ITS ---
Exam(s) CT ABDOMEN PELVIS W EXAM: CT ABDOMEN PELVIS W CLINICAL HISTORY: increasing pain takes her breath away, ABD PAIN, R10.9. TECHNIQUE: Imaging Protocol: Axial computed tomography images with coronal and sagittal reformatted images were created and reviewed CONTRAST MATERIAL: Intravenous: Omnipaque 350 Contrast volume:100 ml Oral: yes / COMPARISON: No exams were available for comparison FINDINGS: ABDOMEN: Lung Bases: Normal where visualized. Liver: Enlarged . severe hepatic steatosis. No measurable mass. Gallbladder and biliary tract: Status post cholecystectomy. No radiodense calculus or dilation. Pancreas: Normal density, no abnormal calcifications or inflammatory process. Spleen: Normal. Kidneys: Normal size, contour and axis. No radiodense stones or obstructive uropathy. No suspicious m asses seen. Adrenal glands: No masses seen. Abdominal Aorta: Abdominal portion non-dilated. Atherosclerotic changes. Soft tissues: Unremarkable. PELVIS: Bladder: No gross wall thickening. No calculi.No focal mass. Bowel: Sigmoid diverticulosis. No evidence of diverticulitis. Normal quantity of stool. No obstruc tion. No bowel wall thickening. Appendix not seen Peritoneal cavity: No ascites, collection or mesenteric inflammatory response. Bones: Unremarkable for age. Reproductive organs: Enlarged uterus measuring 11 by 7.1 by 8.5 cm. No thickening of the endometrial stripe. 3 x 2 centimeter right ovarian cyst which appears simple. Lymph nodes: Unremarkable. Impression: No acute abnormality. Hepatic steatosis. Enlarged uterus. Small right ovarian cyst. Sigmoid diverticulosis. RADIATION DOSE DELIVERED: 1,367.93mGy.cm Total DLP DATA REPOSITORY: All CT scans at this facility are submitted to the National Radiology Data Registry (NRDR) Dose Index Registry (DIR) with the [employer] (A[employer]). RADIATION OPTIMIZATION: All CT scans at this facility use at least one of these dose optimization te chniques: automated exposure control; mA and/or kV adjustment per patient size (includes targeted exa ms where dose is matched to clinical indication); or iterative reconstruction.
== END 2022-09-07 01:38 ==
LOC: DI 01:18
PROVIDERS: PCP Nurse Practitioner Family; Visit Provider Nurse Practitioner Family
DX: K76.0 Fatty (change of) liver, not elsewhere classified (principal); N83.01 Follicular cyst of right ovary; K57.30 Diverticulosis of large intestine without perforation or abscess without bleeding
CPT/HCPCS: 74177; 82565; 85025

== ENCOUNTER → 2023-03-01 00:55 | Outpatient (CLI) | payer MEDICARE, MEDICAID, SELFPAY ==
--- NOTE | 2023-03-01 14:15 | DI.MAMMO_ITS ---
Exam(s) MAMMO DIAGNOSTIC UNI EXAM: MAMMO DIAGNOSTIC UNI CLINICAL HISTORY: 3-6 mos f/u,R92.8,Z09. TECHNIQUE: Craniocaudal and mediolateral oblique Full Field Digital Mammography views of the right b reast with Computer Aided Diagnosis followed by Tomosynthesis. COMPARISON: Comparison is made with prior examinations. FINDINGS: Mammography/Tomosynthesis: Masses/Architectural Distortion: The asymmetric breast tissue in the upper outer quadrant of the righ t breast appears stable. No new or suspicious nodules or areas of architectural distortion are seen. Microcalcifictions: No suspicious pleomorphic-type are seen. Stable benign type calcifications are se en in the central right breast. Skin Thickening/Nipple Retraction: None. IMPRESSION: 1. No evidence of malignancy is noted. 2. A six-month follow-up right mammogram is requested for re-evaluation. 3. The findings were discussed with the patient on the date of the examination. BI-RADS Category 3 - 6 month - Probably Benign Finding: Recommend follow-up imaging in 6 months Breast Density - Category B - Scattered areas of fibroglandular density Breast density Category C or D implies that the patient has dense breast tissue. Dense breast tissue can make it harder to find cancer on a mammogram. Dense breast tissue is also associated with an incr eased risk of breast cancer. This information about the result of the mammogram report was provided to the patient to raise their awareness. Use this report when you speak with the patient about their risks for breast cancer, which includes their family history. At that time, you may recommend additional screening tests (Ultrasoun d or MRI) as these tests may add significant information. A negative radiographic report should not delay biopsy if a dominant or clinically suspicious mass is present. Up to ten percent of cancers are not identified on mammography. A negative report may reinforce clinical impression. Adenosis and dense breasts may obscure an underlying neoplasm. False positive reports average 6 to 10%. Patient will receive a letter notifying them of these results.
== END ==
PROVIDERS: PCP Nurse Practitioner Family; Visit Provider Nurse Practitioner Family
DX: Z09 Encounter for follow-up examination after completed treatment for conditions other than malignant neoplasm (principal); R92.8 Other abnormal and inconclusive findings on diagnostic imaging of breast
CPT/HCPCS: 77061; 77065; G0279

== ENCOUNTER → 2023-08-30 00:21 | Outpatient (CLI) | payer MEDICARE, MEDICAID, SELFPAY ==
--- NOTE | 2023-08-30 15:23 | DI.MAMMO_ITS ---
Exam(s) MAMMO DIAGNOSTIC BI EXAM: MAMMO DIAGNOSTIC BI CLINICAL HISTORY: inconclusive mammo, 6 month f/u R92.2. TECHNIQUE: Craniocaudal and mediolateral oblique Full Field Digital Mammography views of the bilater al breast with Computer Aided Diagnosis followed by Tomosynthesis. COMPARISON: Comparison is made with prior examinations. FINDINGS: Mammography/Tomosynthesis: Masses/Architectural Distortion: There are stable bilateral breast nodules. No new nodules are seen. No areas of architectural distortion are present. Microcalcifictions: No suspicious pleomorphic-type are seen. Skin Thickening/Nipple Retraction: None. IMPRESSION: 1. No evidence of malignancy is noted. 2. Unless there is more urgent need, follow-up screening mammography is recommended, as per [employer] guidelines. 3. The findings were discussed with the patient on the date of the examination. BI-RADS Category 2 - Benign Findings Breast Density - Category B - Scattered areas of fibroglandular density Breast density Category C or D implies that the patient has dense breast tissue. Dense breast tissue can make it harder to find cancer on a mammogram. Dense breast tissue is also associated with an incr eased risk of breast cancer. This information about the result of the mammogram report was provided to the patient to raise their awareness. Use this report when you speak with the patient about their risks for breast cancer, which includes their family history. At that time, you may recommend additional screening tests (Ultrasoun d or MRI) as these tests may add significant information. A negative radiographic report should not delay biopsy if a dominant or clinically suspicious mass is present. Up to ten percent of cancers are not identified on mammography. A negative report may reinforce clinical impression. Adenosis and dense breasts may obscure an underlying neoplasm. False positive reports average 6 to 10%. Patient will receive a letter notifying them of these results.
== END ==
PROVIDERS: PCP Nurse Practitioner Family; Visit Provider Nurse Practitioner Family
DX: Z12.31 Encounter for screening mammogram for malignant neoplasm of breast (principal); R92.8 Other abnormal and inconclusive findings on diagnostic imaging of breast
CPT/HCPCS: 77062; 77066; G0279

== ENCOUNTER 2023-09-03 06:02 | Outpatient (CLI) | payer MEDICARE, MEDICAID, SELFPAY ==
[2023-09-03 16:23] LABS: HGB 14.9 g/dL (11.2-15.7); MCH 30.1 pg (27.0-33.0); MCHC 32.4 % (32.0-36.0); MCV 93 fL (80-95); MPV 10.3 fL (8.0-11.0); Platelet Count 328 10^3/uL (130-400); RBC 4.95 10^6/uL (3.93-5.22); RDW 12.7 % (11.7-14.6); RDW-SD 43.2 fL; WBC 12.21 10^3/uL (4.4-10.8)
[2023-09-03 16:40] LABS: Hemoglobin A1C 6.4 % (<5.7)
[2023-09-03 19:31] LABS: ALT 68 U/L (14-59); AST 69 U/L (15-37); Albumin 3.9 g/dL (3.4-5.0); Alkaline Phosphatase 110 U/L (46-116); Anion Gap 18.9 mmol/L (3-11); BUN 5 mg/dL (7-18); Bilirubin, Total 0.5 mg/dL (0.2-1.0); CO2 22.1 mmol/L (21.0-32.0); CREATININE 1.2 mg/dL (0.55-1.02); Calcium 8.9 mg/dL (8.5-10.1); Chloride 101 mmol/L (98-107); Estimated GFR 50.86 (mL/min/1.73m2); Glucose 162 mg/dL (74-106); Magnesium 1.7 mg/dL (1.8-2.4); Potassium 4.2 mmol/L (3.5-5.1); Sodium 142 mmol/L (136-145); TSH (W/Ref FT4) 2.22 uIU/mL (0.36-3.74); Total Protein 8.3 g/dL (6.4-8.2)
[2023-09-03 21:43] LABS: Vitamin D 25 Total 66.5 ng/mL (30-100)
== END 2023-09-03 06:03 | disposition home or self-care (01) ==
PROVIDERS: PCP Nurse Practitioner Family; Visit Provider Nurse Practitioner Family
DX: M62.838 Other muscle spasm (principal); R73.03 Prediabetes; R79.89 Other specified abnormal findings of blood chemistry; E03.9 Hypothyroidism, unspecified; E55.9 Vitamin D deficiency, unspecified
CPT/HCPCS: 36415; 80053; 82306; 85027; 83036; 83735; 84443

== ENCOUNTER 2024-01-11 21:43 | Outpatient (CLI) | payer MEDICARE, MEDICAID, SELFPAY ==
--- NOTE | 2024-01-11 16:15 | DI.RAD_ITS ---
Exam(s) XR FOREARM RT XR HUMERUS RT XR SHOULDER RT COMPLETE 2+V EXAM: XR SHOULDER RT COMPLETE 2+V and XR forearm RT and XR humerus RT CLINICAL HISTORY: M79.601 pain in rt arm, fell down the stairs 2 days ago. TECHNIQUE: 2D digital imaging was performed of the right humerus, forearm and shoulder. Images we re obtained. AP, Grashey, Y-view, lateral and axillary views were obtained. COMPARISON: CR,XR XR FOREARM RT from 01/11/2024 CR,XR XR HUMERUS RT from 01/11/2024 FINDINGS: BONES: There are findings suspicious for nondisplaced fracture of the radial neck. No bony destructi ve lesion is seen. JOINTS: No dislocation present. The acromioclavicular and glenohumeral joints are well maintained. T here is an elbow joint effusion. SOFT TISSUE: Normal. IMPRESSION: 1. Findings are suspicious for nondisplaced fracture through the radial neck. There is a small elbow joint effusion. 2. No evidence of a fracture of the right shoulder. DATA REPOSITORY: RADIATION DOSE DELIVERED:
--- NOTE | 2024-01-11 16:15 | DI.RAD_ITS ---
Exam(s) XR HAND RT COMPLETE EXAM: XR HAND RT COMPLETE CLINICAL HISTORY: M79.601 pain in rt arm, fell down the stairs 2 days ago. TECHNIQUE: 2D digital imaging was performed of the right hand. Three images were obtained. AP, late ral and oblique views were obtained. COMPARISON: No exams were available for comparison FINDINGS: BONES: No acute fracture is present. No bony destructive lesion is seen. JOINTS: No dislocation present. There are mild degenerative changes in the hand. SOFT TISSUE: Normal. IMPRESSION: No acute fracture or dislocation. DATA REPOSITORY: RADIATION DOSE DELIVERED:
--- NOTE | 2024-01-11 17:55 | DI.VRAD_ITS ---
PROCEDURE INFORMATION: Exam: XR Right Shoulder Exam date and time: 01/11/2024 5:07 PM Age: 63 years old Clinical indication: Injury or trauma; Fall; Blunt trauma (contusions or hematomas) and other: 79.601 pain in RT arm, fell down the stairs 2 days ago; Shoulder; Right TECHNIQUE: Imaging protocol: Radiologic exam of the right shoulder. Views: 2 or more views. COMPARISON: CR XR CHEST 2V PA LATERAL 09/22/2018 18:41 FINDINGS: Bones/joints: Unremarkable. Soft tissues: Unremarkable. IMPRESSION: No acute bony findings. If clinical symptoms persist recommend followup film in 7-10 days. Dictated and Authenticated by: Tiffanie Spangler MD. Ordering:ADAMA Rosario MD
--- NOTE | 2024-01-11 17:56 | DI.VRAD_ITS ---
PROCEDURE INFORMATION: Exam: XR Right Hand Exam date and time: 01/11/2024 5:16 PM Age: 63 years old Clinical indication: Injury or trauma; Other: 79.601 pain in RT arm, fell down the stairs 2 days ago; Blunt trauma (contusions or hematomas); Hand; Right TECHNIQUE: Imaging protocol: Radiologic exam of the right hand. Views: 3 or more views. COMPARISON: CR XR FOREARM RT 11/01/2024 17:14 FINDINGS: Bones/joints: Mild degenerative changes of the 1st metacarpal phalangeal joint and 1st D IP joint. No fracture or dislocation. Soft tissues: Unremarkable. IMPRESSION: No evidence for acute bony injury. If clinical symptoms persist recommend followup film in 7-10 days. Dictated and Authenticated by: Tiffanie Spangler MD. Ordering:ADAMA Rosario MD
--- NOTE | 2024-01-11 17:57 | DI.VRAD_ITS ---
PROCEDURE INFORMATION: Exam: XR Right Humerus Exam date and time: 01/11/2024 5:11 PM Age: 63 years old Clinical indication: Injury or trauma; Other: 79.601 pain in RT arm, fell down the stairs 2 days ago; Blunt trauma (contusions or hematomas); Arm, upper; Right TECHNIQUE: Imaging protocol: Radiologic exam of the right humerus. Views: 2 or more views. COMPARISON: CR XR SHOULDER RT COMPLETE 2+V 11/01/2024 17:07 FINDINGS: Bones/joints: Normal. Soft tissues: Unremarkable. IMPRESSION: No acute bony findings. If clinical symptoms persist recommend followup film in 7-10 days. Dictated and Authenticated by: Tiffanie Spangler MD. Ordering:ADAMA Rosario MD
--- NOTE | 2024-01-11 17:58 | DI.VRAD_ITS ---
PROCEDURE INFORMATION: Exam: XR Right Forearm Exam date and time: 01/11/2024 5:14 PM Age: 63 years old Clinical indication: Injury or trauma; Other: 79.601 pain in RT arm, fell down the stairs 2 days ago; Blunt trauma (contusions or hematomas); Arm, lower; Right TECHNIQUE: Imaging protocol: Radiologic exam of the right forearm. Views: 2 views. COMPARISON: No relevant prior studies available. FINDINGS: Bones/joints: Unremarkable. Soft tissues: Unremarkable. IMPRESSION: No evidence for acute bony injury. If clinical symptoms persist recommend followup film in 7-10 days. Dictated and Authenticated by: Tiffanie Spangler MD. Ordering:ADAMA Rosario MD
== END 2024-01-11 22:03 ==
LOC: DI 21:44
PROVIDERS: PCP Nurse Practitioner Family; Visit Provider Nurse Practitioner Family
DX: S52.134A Nondisplaced fracture of neck of right radius, initial encounter for closed fracture (principal); X58.XXXA Exposure to other specified factors, initial encounter
CPT/HCPCS: 73030; 73060; 73090; 73130

== ENCOUNTER 2024-01-16 14:41 | Outpatient (CLI) | payer MEDICARE, MEDICAID, SELFPAY ==
[2024-01-16 14:33] LABS: Hemoglobin A1C 6.1 % (<5.7)
[2024-01-16 14:57] LABS: ALT 42 U/L (14-59); AST 47 U/L (15-37); Albumin 3.5 g/dL (3.4-5.0); Alkaline Phosphatase 122 U/L (46-116); Anion Gap 10.2 mmol/L (3-11); BUN 8 mg/dL (7-18); Bilirubin, Total 0.41 mg/dL (0.2-1.0); CO2 26.8 mmol/L (21.0-32.0); CREATININE 1.1 mg/dL (0.55-1.02); Calcium 8.8 mg/dL (8.5-10.1); Chloride 103 mmol/L (98-107); Estimated GFR 56.46 (mL/min/1.73m2); Glucose 137 mg/dL (74-106); Sodium 140 mmol/L (136-145); Total Protein 7.8 g/dL (6.4-8.2)
== END 2024-01-16 14:42 | disposition home or self-care (01) ==
LOC: LBO 14:41
PROVIDERS: PCP Nurse Practitioner Family; Visit Provider Nurse Practitioner Family
DX: E78.5 Hyperlipidemia, unspecified (principal); R73.03 Prediabetes
CPT/HCPCS: 36415; 80053; 83036

== ENCOUNTER 2024-01-22 15:29 | Outpatient (CLI) | payer MEDICARE, MEDICAID, SELFPAY ==
--- NOTE | 2024-01-22 15:04 | DI.RAD_ITS ---
Exam(s) XR ELBOW RT LIMITED EXAM: XR ELBOW RT LIMITED INDICATION: F/U FRACTURE. COMPARISON: No exams were available for comparison TECHNIQUE: 2D digital imaging was performed. Two views. FINDINGS: There has been continued healing at the radial neck fracture. The alignment is unchanged. No new ab normalities. Joint effusion still visible. DATA REPOSITORY: RADIATION DOSE DELIVERED:
== END 2024-01-22 15:30 | disposition home or self-care (01) ==
LOC: DIORS 15:29
PROVIDERS: PCP Nurse Practitioner Family; Referring Provider Nurse Practitioner Family; Visit Provider Student in an Organized Health Care Education/Training Program
DX: S52.131A Displaced fracture of neck of right radius, initial encounter for closed fracture; W01.0XXA Fall on same level from slipping, tripping and stumbling without subsequent striking against object, initial encounter
CPT/HCPCS: 99203; 73070

== ENCOUNTER 2024-03-04 15:51 | Outpatient (CLI) | payer MEDICARE, MEDICAID, SELFPAY ==
--- NOTE | 2024-03-04 13:45 | DI.RAD_ITS ---
Exam(s) XR ELBOW RT LIMITED EXAM: XR ELBOW RT LIMITED h CLINICAL HISTORY: F/U FRACTURE. TECHNIQUE: 2D digital imaging was performed. COMPARISON: CR XR ELBOW RT LIMITED from 01/22/2024 FINDINGS: Two views-AP and lateral: Again noted is the healing fracture at the radial head-neck which appears mildly impacted. Fracture line still somewhat visible. There is a small calcification now evident in the immediately adjacent soft tissues, adjacent to the radial neck fracture site. There are no fractures of the olecranon fossa. Small bony excrescences are seen at the level both ep icondyles in distal humerus. Correlation with any clinical signs of epicondylitis recommended IMPRESSION: Radial neck fracture still visible. No further displacement. Small adjacent soft tissue calcificati on may represent fracture fragment versus is calcified hematoma at this level. Epicondyle findings as above. DATA REPOSITORY: RADIATION DOSE DELIVERED:
== END 2024-03-04 15:52 | disposition home or self-care (01) ==
LOC: DIORS 15:51
PROVIDERS: PCP Nurse Practitioner Family; Referring Provider Nurse Practitioner Family; Visit Provider Student in an Organized Health Care Education/Training Program
DX: S52.134D Nondisplaced fracture of neck of right radius, subsequent encounter for closed fracture with routine healing; X58.XXXD Exposure to other specified factors, subsequent encounter
CPT/HCPCS: 99213; 73070

== ENCOUNTER 2024-09-12 00:11 | Outpatient (CLI) | payer MEDICARE, MEDICAID, SELFPAY ==
--- NOTE | 2024-09-12 08:00 | DI.DEXA_ITS ---
Exam(s) XR DEXA BONE DENSITY W/WO HIMA EXAM: XR DEXA BONE DENSITY W/WO HIMA CLINICAL HISTORY: screening for osteoporosis, postmenopausal status, Z78.0 TECHNIQUE: COMPARISON: No exams were available for comparison FINDINGS: Lateral Spine Image: Unremarkable. No compression deformities identified. Left hip: Total T-Score: 0.7 Total Z-Score: 1.9 T- and Z-scores: Within normal limits. Lumbar Spine: Total T-Score: 0.4 Total Z-Score: 2.2 T- and Z-scores: Within normal limits. IMPRESSION: No evidence of osteoporosis.
--- NOTE | 2024-09-12 08:00 | DI.RAD_ITS ---
Exam(s) XR ELBOW RT COMPLETE EXAM: XR ELBOW RT COMPLETE CLINICAL HISTORY: re-injured, fracture radial neck rt, S52.131A. TECHNIQUE: 2D digital imaging was performed of the left elbow. Three images were obtained. AP, lateral and oblique views were obtained. COMPARISON: CR XR ELBOW RT LIMITED from 03/04/2024 FINDINGS: BONES: No acute fracture is present. No bony destructive lesion is seen. The radial neck fracture has completely healed. JOINTS: The elbow is normally aligned. No joint effusion is seen. SOFT TISSUE: Normal. IMPRESSION: No acute abnormality. DATA REPOSITORY: RADIATION DOSE DELIVERED:
--- NOTE | 2024-09-12 12:49 | DI.CTLCSR_ITS ---
Exam(s) CT CHEST LUNG CANCER SCREEN EXAM: CT CHEST LUNG CANCER SCREEN CLINICAL HISTORY: Screening for lung cancer, former, Z87.891 TECHNIQUE: Imaging Protocol: Axial computed tomography images with coronal and sagittal reformatted images were created and reviewed. Lung Computer Aided Detection (CAD) was utilized. COMPARISON: CR XR CHEST 2V PA LATERAL from 09/22/2018 FINDINGS: Tracheobronchial tree: Patent where visualized. No bronchiectasis. Pulmonary parenchyma: No consolidation or dominant measurable mass. There are small scattered interstitial infiltrates seen bilaterally. Lung Nodules: None. Mediastinum and Aminata: No dominant adenopathy or fluid collection. The esophagus is unremarkable. Thyroid gland: Unremarkable. Lymph nodes: Unremarkable. Pleura: No effusion or pneumothorax. Heart: The heart is not dilated. Coronary artery calcification is present. No pericardial effusion. Aorta: Thoracic aorta non-dilated.Atherosclerotic calcification is present. Upper abdomen: There is diffuse fatty infiltration of the liver. Soft Tissues: Unremarkable. Bones: Within normal limits. IMPRESSION: 1. There are no suspicious pulmonary nodules. 2. Small scattered interstitial infiltrates. This may represent acute pneumonitis or edema. Chronic interstitial disease cannot be excluded. Please correlate clinically. High-resolution CT scan of the chest may be considered for further evaluation. Lung RADS Cat 1 - Negative: No nodules and definitely benign nodules Lung-RADS 1.0 CATEGORIES: Category 0 - Prior chest CT exam(s) being located for comparison. Category 1 - Annual screening in 12 months. No nodules or definitely benign nodules. Category 2 - Annual screening in 12 months. Benign appearance. Nodules with low likelihood of becoming active cancer. Category 3 - 6-month follow-up. Probably benign. Short-term follow-up suggested. Nodules with low likelihood of becoming active cancer. Category 4A - 3-month follow-up and CT/PET if >8 mm in size. Suspicious finding. Findings which require additional testing. Category 4B - Findings which require additional testing and tissue sampling. Suspicious finding. Category 4X - Category 3 or 4 nodules with additional features or imaging findings that increases the suspicion of malignancy. Modifier S- Potentially clinically significant finding. (Non lung cancer) RADIATION DOSE DELIVERED: 45.76mGy.cm Total DLP 45.76mGy.cmTotal DLP DATA REPOSITORY: All CT scans at this facility are submitted to the National Radiology Data Registry (NRDR) Dose Index Registry (DIR) with the [employer] ([employer]). RADIATION OPTIMIZATION: All CT scans at this facility use at least one of these dose optimization techniques: automated exposure control; mA and/or kV adjustment per patient size (includes targeted exams where dose is matched to clinical indication); or iterative reconstruction.
== END 2024-09-12 00:31 ==
LOC: DI 00:11
PROVIDERS: PCP Nurse Practitioner Family; Visit Provider Nurse Practitioner Family
DX: S52.131A Displaced fracture of neck of right radius, initial encounter for closed fracture (principal); Z12.2 Encounter for screening for malignant neoplasm of respiratory organs; Z78.0 Asymptomatic menopausal state; Z87.891 Personal history of nicotine dependence; Z13.820 Encounter for screening for osteoporosis; X58.XXXA Exposure to other specified factors, initial encounter
CPT/HCPCS: 71271; 77080; 73080

== ENCOUNTER 2024-10-01 01:46 | Outpatient (CLI) | payer MEDICARE, MEDICAID, SELFPAY ==
--- NOTE | 2024-10-01 14:52 | DI.CT_ITS ---
Exam(s) CT CHEST HIGH RESOLUTION EXAM: CT CHEST HIGH RESOLUTION CLINICAL HISTORY: f/u LDCT abdnormality,fatigue,r93.89,r53.83. TECHNIQUE: Multi planar reconstructions were performed. CONTRAST MATERIAL: None COMPARISON: CR XR CHEST 2V PA LATERAL from 09/22/[address] CHEST LUNG CANCER SCREEN from 09/12/2024 FINDINGS: CHEST: LUNGS: In the lateral aspect of the right upper lobe there is a mild subpleural infiltrate which is possibly chronic and was evident on the recent low dose CT scan of 09/12/2024. Less the same is seen in the lateral aspect of the right middle lobe. There is sparing of the right lower lobe and similar findings are not seen in the opposite-left lung. No ominous pulmonary masses. There are no pleural effusions. No findings in trachea and mainstem bronchi. MEDIASTINUM: There is no obvious hilar nor mediastinal adenopathy. Visualized thyroid unremarkable.No obvious axillary adenopathy CARDIAC: Heart size is normal. There is no pericardial effusion.Caliber of the thoracic aorta is within normal limits. VISUALIZED UPPER ABDOMEN:No adrenal masses. Gallbladder is surgically absent. A [place] steatosis noted. OSSEOUS: There is an incompletely healed fracture of the posterior aspect of the left 11th rib. No other rib fractures identified. No significant osseous lesions. In. IMPRESSION: 1. Nonspecific possibly chronic infiltrate in lateral segment of the right upper lobe and right middle lobe.. 2. No pleural effusions nor intrathoracic adenopathy. 3. Left 11th rib fracture noted RADIATION DOSE DELIVERED: 615.15mGy.cm Total DLP DATA REPOSITORY: All CT scans at this facility are submitted to the National Radiology Data Registry (NRDR) Dose Index Registry (DIR) with the [employer] ([employer]). RADIATION OPTIMIZATION: All CT scans at this facility use at least one of these dose optimization techniques: automated exposure control; mA and/or kV adjustment per patient size (includes targeted exams where dose is matched to clinical indication); or iterative reconstruction.
== END 2024-10-01 02:06 ==
LOC: DI 01:46
PROVIDERS: PCP Nurse Practitioner Family; Visit Provider Nurse Practitioner Family
DX: R93.89 Abnormal findings on diagnostic imaging of other specified body structures (principal); R53.83 Other fatigue
CPT/HCPCS: 71250

== ENCOUNTER 2024-10-16 02:45 | Outpatient (CLI) | payer MEDICARE, MEDICAID, SELFPAY ==
[2024-10-16 11:38] LABS: Anion Gap 12.5 mmol/L (3-11); BUN 6 mg/dL (7-18); CO2 24.5 mmol/L (21.0-32.0); Calcium 8.8 mg/dL (8.5-10.1); Chloride 102 mmol/L (98-107); Estimated GFR 71.39 (mL/min/1.73m2); Glucose 156 mg/dL (74-106); Potassium 4.0 mmol/L (3.5-5.1); Sodium 139 mmol/L (136-145); TSH (W/Ref FT4) 3.51 uIU/mL (0.36-3.74)
== END 2024-10-16 02:46 | disposition home or self-care (01) ==
LOC: LBO 02:45
PROVIDERS: PCP Nurse Practitioner Family; Visit Provider Nurse Practitioner Family
DX: E03.9 Hypothyroidism, unspecified (principal); I10 Essential (primary) hypertension
CPT/HCPCS: 36415; 80048; 84443

== ENCOUNTER → 2024-10-29 12:54 | Outpatient (BNVA) | payer MEDICARE, MEDICAID, SELFPAY | PROVIDERS: PCP Nurse Practitioner Family; Referring Provider Nurse Practitioner Family; Visit Provider Internal Medicine Pulmonary Disease | DX: R91.8 Other nonspecific abnormal finding of lung field (principal); R05.3 Chronic cough; R06.09 Other forms of dyspnea; Z87.891 Personal history of nicotine dependence | CPT/HCPCS: 99215; 36415 ==

== ENCOUNTER 2024-10-29 14:43 | Outpatient (REF) | payer MEDICARE, MEDICAID, SELFPAY ==
[2024-10-29 15:13] LABS: Abs Immature Grans 0.07 10^3/uL (0.0-0.06); HCT 41.9 % (36.0-46.0); HGB 13.7 g/dL (11.2-15.7); Immature Grans % 0.7 %; MCH 30.4 pg (27.0-33.0); MCHC 32.7 % (32.0-36.0); MCV 93 fL (80-95); MPV 10.6 fL (8.0-11.0); Platelet Count 250 10^3/uL (130-400); RBC 4.51 10^6/uL (3.93-5.22); RDW 13.1 % (11.7-14.6); RDW-SD 44.3 fL; WBC 10.55 10^3/uL (4.4-10.8)
== END 2024-10-29 14:44 | disposition home or self-care (01) ==
LOC: LBN 14:43
PROVIDERS: PCP Nurse Practitioner Family; Visit Provider Internal Medicine Pulmonary Disease
DX: R91.8 Other nonspecific abnormal finding of lung field (principal)
CPT/HCPCS: 85025

== ENCOUNTER 2024-11-07 00:53 | Outpatient (CLI) | payer MEDICARE, MEDICAID, SELFPAY ==
[2024-11-07] MEDS: Inhaler, Assist Device 1 EACH MC (16:20)
[2024-11-07] MEDS: Levalbuterol HFA 15 GM INH 4 PUFF IH (16:21)
--- NOTE | 2024-11-12 07:17 | W.PFT ---
Date of service: 11/07/24 Time of Service: 14:59 Pulmonary Function Test Result Indications: Dyspnea Impression 1. Good patient effort was noted. ATS standards for reproducibility were met. 2. Normal spirometry. 3. Following the administration of a bronchodilator there was not a significant response 4. Was unable to complete lung volume testing 5. DLCO was reduced at 72%, however, difficulty with DLCO testing was noted. Clinical correlation recommended
== END 2024-11-07 00:54 | disposition home or self-care (01) ==
PROVIDERS: PCP Nurse Practitioner Family; Visit Provider Internal Medicine Pulmonary Disease
DX: R06.00 Dyspnea, unspecified (principal)
CPT/HCPCS: 94060; 94729

== ENCOUNTER → 2024-12-31 13:44 | Outpatient (BNVA) | payer MEDICARE, MEDICAID, SELFPAY | PROVIDERS: PCP Nurse Practitioner Family; Referring Provider Nurse Practitioner Family; Visit Provider Internal Medicine Pulmonary Disease | DX: R91.8 Other nonspecific abnormal finding of lung field (principal); R05.3 Chronic cough; R06.00 Dyspnea, unspecified; Z87.891 Personal history of nicotine dependence | CPT/HCPCS: 99214 ==